=== PATIENT | male | born 1980 | race Caucasian/White ===

== ENCOUNTER 2019-12-10 05:03 | Emergency (ER) | payer SELFPAY ==
--- NOTE | 2019-12-10 05:38 | ER Document Report ---
Entered by ANA BRUNNER SCRIBE 12/10/19 0517 Acting as scribe for:PRINCESS LOTT IV, MD ED General - General Mode of Arrival: Ambulatory Information source: Patient, Friend - Significant other TRAVEL OUTSIDE OF THE [place] IN LAST 30 DAYS: No <PRINCESS LOTT IV - Last Filed: 12/10/19 06:03> <JR DIAZ - Last Filed: 12/10/19 07:44> - General Chief Complaint: Overdose Stated Complaint: POSSIBLE OVERDOSE Time Seen by Provider: 12/10/19 05:15 Notes: This 39 year old male patient presents to the ED today with complaints of a possible heroin overdose that occurred x1 hour prior to arrival. Patient states that he believes the heroin was possibly laced with something because he was twitching and jerking. Patient states that he has been using heroin since 2016. Significant other at bedside states that the patient has been clean for x8 months until x2 months ago. Significant other notes that the patient has an appointment this morning at 0800 for treatment at the [facility]. Patient is requesting to not be given Ativan or any other medications. (PRINCESS LOTT IV) - Related Data Allergies/Adverse Reactions: No Known Allergies Allergy (Unverified 12/10/19 06:00) Past Medical History - General Information source: Patient - Social History Smoking Status: Unknown if Ever Smoked Cigarette use (# per day): No Chew tobacco use (# tins/day): No Smoking Education Provided: No Drug Abuse: Heroin Family History: Reviewed & Not Pertinent Patient has suicidal ideation: No Patient has homicidal ideation: No <PRINCESS LOTT IV - Last Filed: 12/10/19 06:03> Review of Systems - Review of Systems Constitutional: See HPI, Other - Possible heroin overdose EENT: No symptoms reported Cardiovascular: No symptoms reported Respiratory: No symptoms reported Gastrointestinal: No symptoms reported Genitourinary: No symptoms reported Male Genitourinary: No symptoms reported Musculoskeletal: See HPI, Other - Twitching/Jerking Skin: No symptoms reported Hematologic/Lymphatic: No symptoms reported Neurological/Psychological: No symptoms reported -: Yes All other systems reviewed and negative <PRINCESS LOTT IV - Last Filed: 12/10/19 06:03> Physical Exam - General General appearance: Alert, Other - Ocassional random twitching of the extremities - HEENT Head: Normocephalic, Atraumatic Eyes: Normal Pupils: PERRL - Respiratory Respiratory status: No respiratory distress Chest status: Nontender Breath sounds: Normal Chest palpation: Normal - Cardiovascular Rhythm: Regular Heart sounds: Normal auscultation Murmur: No - Abdominal Inspection: Normal Distension: No distension Bowel sounds: Normal Tenderness: Nontender Organomegaly: No organomegaly - Back Back: Normal, Nontender - Extremities General upper extremity: Normal inspection General lower extremity: Normal inspection - Neurological Neuro grossly intact: Yes - Psychological Associated symptoms: Normal affect, Normal mood - Skin Skin Temperature: Warm Skin Moisture: Dry Skin Color: Normal <PRINCESS LOTT IV - Last Filed: 12/10/19 06:03> - Vital signs Vitals: Temp Pulse Resp BP Pulse Ox 97.5 F 82 16 140/84 H 94 12/10/19 05:12 12/10/19 05:12 12/10/19 05:12 12/10/19 05:12 12/10/19 05:12 Course - Laboratory Result Diagrams: 12/10/19 05:22 12/10/19 05:22 - Transfer of Care Care transferred to following provider: DR. UGARTE <PRINCESS LOTT IV - Last Filed: 12/10/19 06:03> - Laboratory Result Diagrams: 12/10/19 05:22 12/10/19 05:22 <JR DIAZ - Last Filed: 12/10/19 07:44> - Re-evaluation Re-evalutation: 12/10/19 07:41 The patient was signed out to me at shift change since his labs were pending. The patient admitted to using heroin he thought was laced with something. The patient's labs shows no acute process. Patient is apparently going right to a rehab facility from the ER this morning. Patient has normal vital signs and is showing no signs of withdrawal. (JR DIAZ) - Vital Signs Vital signs: Temp Pulse Resp BP Pulse Ox 97.5 F 82 12 126/74 H 98 12/10/19 05:12 12/10/19 05:12 12/10/19 07:36 12/10/19 07:36 12/10/19 07:36 - Laboratory Laboratory results interpreted by me: 12/10/19 05:22 ALT 76 H - EKG Interpretation by Me Additional EKG results interpreted by me: 12/10/19 06:03 EKG obtained on 12/10/2019 at 055 3 hours was interpreted by this MD. Findings normal sinus rhythm, rate 72, borderline left axis deviation is present, QRS complexes appear narrow, ST segments are nonspecific. (PRINCESS LOTT IV) Discharge <PRINCESS LOTT IV - Last Filed: 12/10/19 06:03> <JR DIAZ - Last Filed: 12/10/19 07:44> - Discharge Clinical Impression: Heroin adverse reaction Condition: Stable Disposition: HOME, SELF-CARE Instructions: Instructions for Home Care Following a Drug Overdose ([facility]) Additional Instructions: Follow up with your primary care doctor and with outpatient rehab. I personally performed the services described in the documentation, reviewed and edited the documentation which was dictated to the scribe in my presence, and it accurately records my words and actions.
[2019-12-10 06:09] LABS: ABSOLUTE BASOPHILS # (AUTO) 0.1 10^3/uL (0.0-0.2); ABSOLUTE EOSINOPHILS # (AUTO) 0.1 10^3/uL (0.0-0.6); ABSOLUTE LYMPHOCYTES (AUTO) 1.9 10^3/uL (0.5-4.7); ABSOLUTE MONOCYTES (AUTO) 0.8 10^3/uL (0.1-1.4); ABSOLUTE NEUT (AUTO) 5.1 10^3/uL (1.7-8.2); BASOPHILS % (AUTO) 0.7 % (0-2); EOSINOPHILS % (AUTO) 1.3 % (0-6); HEMATOCRIT 43.7 % (37.9-51.0); LYMPHOCYTES % (AUTO) 23.6 % (13-45); MEAN CORPUSCULAR HEMOGLOBIN 30.5 pg (27.0-33.4); MEAN CORPUSCULAR HGB CONC 34.2 g/dL (32.0-36.0); MEAN CORPUSCULAR VOLUME 89 fl (80-97); MONOCYTES % (AUTO) 10.2 % (3-13); PLATELET COUNT 359 10^3/uL (150-450); SEGMENTED NEUTROPHILS % (AUTO) 64.2 % (42-78); TOTAL CELLS COUNTED % (AUTO) 100 %; WHITE BLOOD COUNT 7.9 10^3/uL (4.0-10.5)
[2019-12-10 06:10] LABS: APPEARANCE,URINE SLIGHTLY-CLOUDY; BILIRUBIN,URINE NEGATIVE (NEGATIVE); COLOR,URINE YELLOW; GLUCOSE, URINE NEGATIVE (NEGATIVE); KETONES,URINE NEGATIVE (NEGATIVE); LEUKOCYTE ESTERASE,URINE NEGATIVE (NEGATIVE); NITRITE,URINE NEGATIVE (NEGATIVE); PROTEIN,URINE NEGATIVE (NEGATIVE); UROBILINOGEN,URINE NEGATIVE mg/dL (<2.0)
--- NOTE | 2019-12-10 06:11 | EKG REPORT ---
SEVERITY:- OTHERWISE NORMAL ECG - SINUS RHYTHM BORDERLINE LEFT AXIS DEVIATION : Confirmed by: Hang Dutton MD 10-Dec-2019 06:10:38
[2019-12-10 06:21] LABS: ALBUMIN 4.1 g/dL (3.5-5.0); ALCOHOL < 10 mg/dL (NONE DETECTED); ALKALINE PHOSPHATASE 69 U/L (38-126); ANION GAP 7 (5-19); ASPARTATE AMINO TRANSFERASE 57 U/L (17-59); BILIRUBIN,TOTAL 0.3 mg/dL (0.2-1.3); BLOOD UREA NITROGEN 18 mg/dL (7-20); CARBON DIOXIDE 28 mmol/L (22-30); CHLORIDE 103 mmol/L (98-107); GLUCOSE 107 mg/dL (75-110); POTASSIUM 4.4 mmol/L (3.6-5.0); TOTAL PROTEIN 7.4 g/dL (6.3-8.2)
[2019-12-10 06:25] LABS: URINE BARBITURATES SCREEN NEGATIVE; URINE BENZODIAZEPINES SCREEN NEGATIVE; URINE COCAINE SCREEN NEGATIVE; URINE MARIJUANA (THC) SCREEN NEGATIVE; URINE PHENCYCLIDINE SCREEN NEGATIVE
[2019-12-10 06:27] LABS: URINE METHADONE SCREEN UNCONFIRMED POSITIVE
[2019-12-10 07:39] VITALS: BP 126/74
== END 2019-12-10 07:51 | disposition home or self-care (01) ==
LOC: ER 05:03
DX: F11.10 Opioid abuse, uncomplicated (principal); R25.3 Fasciculation
CPT/HCPCS: 36415; 80053; 80307; 81001; 83735; 85025; 93005; 93010; 99284

== ENCOUNTER 2020-02-19 04:51 | Emergency (ER) | payer SELFPAY ==
--- NOTE | 2020-02-19 05:53 | ER Document Report ---
ED Psych Disorder / Suicide - General Chief Complaint: Psych Problem Stated Complaint: PSYCH EVALUATION Time Seen by Provider: 02/19/20 05:20 Notes: 40-year-old male with history of polysubstance abuse who is currently a heroin user presents to the emergency department seeking help for his addiction and for paranoia. Patient states that he was sober up until November 2019 when his sister suddenly and he started using the day of her . Patient states that he has severe paranoia and "I am always on edge and racing". Patient denies any SI/HI. Patient currently denies any paranoid delusions or hallucinations. Patient states he is trying to save his marriage. Patient denies any medical complaints at this time. TRAVEL OUTSIDE OF THE [place] IN LAST 30 DAYS: No - Related Data Allergies/Adverse Reactions: No Known Allergies Allergy (Unverified 12/10/19 06:00) Past Medical History - Social History Smoking Status: Unknown if Ever Smoked Family History: Reviewed & Not Pertinent Patient has suicidal ideation: No Patient has homicidal ideation: No Past Surgical History: Reports: Orthopedic Surgery Review of Systems - Review of Systems Constitutional: No symptoms reported EENT: No symptoms reported Cardiovascular: No symptoms reported Respiratory: No symptoms reported Gastrointestinal: No symptoms reported Genitourinary: No symptoms reported Male Genitourinary: No symptoms reported Musculoskeletal: No symptoms reported Skin: No symptoms reported Hematologic/Lymphatic: No symptoms reported Neurological/Psychological: No symptoms reported Physical Exam - Vital signs Vitals: Temp 97.4 F 02/19/20 04:56 - Notes Notes: PHYSICAL EXAMINATION: Reviewed vital signs and charting by RN GENERAL: Alert, interacts well. No acute distress. HEAD: Normocephalic, atraumatic. EYES: Pupils equal and round. Extraocular movements intact. ENT: Oral mucosa moist, tongue midline. NECK: Full range of motion. Trachea midline. LUNGS: Clear to auscultation bilaterally, no wheezes, rales, or rhonchi. No respiratory distress. HEART: Regular rate and rhythm. No murmur ABDOMEN: soft, non-tender. No distention. Bowel sounds present EXTREMITIES: Moves all 4 extremities spontaneously. No edema, No cyanosis. PSYCH: Normal affect, depressed mood. SKIN: Warm, dry, normal turgor. No rashes or lesions noted. Course - Re-evaluation Re-evalutation: 02/19/20 05:53 Patient is very pleasant and engages appropriately in conversation. Good eye contact. Patient appears to have a normal affect but a depressed mood and does appear anxious. Currently awaiting medical clearance for psychiatric services. 02/19/20 06:49 Blood work all returned. Mild leukocytosis of 15,000. Patient's creatinine is 1.48. I am unclear if this is due to an AK I due to prerenal etiology or if patient has existing kidney disease. EKG showed a sinus rhythm with a rate of 99, normal axis, no ST segment elevation or depressions, no T wave inversions or acute changes. Urinalysis did not show any evidence of urinary tract infection but was positive for opiates which is known as the patient is a daily heroin us er. I will give the patient some IV fluids. He is cleared for evaluation by psychiatric services. - Vital Signs Vital signs: Temp Pulse Resp BP Pulse Ox 97.6 F 20 112/76 97 02/19/20 05:01 02/19/20 05:01 02/19/20 05:01 02/19/20 05:01 - Laboratory Result Diagrams: 02/19/20 05:45 02/19/20 05:45 Laboratory results interpreted by me: 02/19/20 02/19/20 02/19/20 05:00 05:45 05:45 WBC 15.0 H RDW 14.3 H Absolute Neuts (auto) 10.6 H Creatinine 1.48 H Est GFR (MDRD) Non-Af 52 L Glucose 132 H Calcium 10.6 H Total Protein 8.5 H Urine Protein 100 H Urine Glucose (UA) 50 H Urine Urobilinogen 2.0 H Salicylates < 1.0 L Acetaminophen < 10 L Discharge - Discharge Clinical Impression: Heroin addiction, Paranoia Condition: Stable Disposition: OTHER
[2020-02-19 05:57] LABS: APPEARANCE,URINE CLOUDY; BILIRUBIN,URINE NEGATIVE (NEGATIVE); GLUCOSE, URINE 50 mg/dL (NEGATIVE); KETONES,URINE NEGATIVE (NEGATIVE); LEUKOCYTE ESTERASE,URINE NEGATIVE (NEGATIVE); NITRITE,URINE NEGATIVE (NEGATIVE); PROTEIN,URINE 100 mg/dL (NEGATIVE); URINE SPECIFIC GRAVITY 1.026
[2020-02-19 05:58] LABS: COLOR,URINE DARK YELLOW
[2020-02-19 05:58] LABS: ABSOLUTE BASOPHILS # (AUTO) 0.1 10^3/uL (0.0-0.2); ABSOLUTE EOSINOPHILS # (AUTO) 0.1 10^3/uL (0.0-0.6); ABSOLUTE MONOCYTES (AUTO) 1.2 10^3/uL (0.1-1.4); ABSOLUTE NEUT (AUTO) 10.6 10^3/uL (1.7-8.2); BASOPHILS % (AUTO) 0.9 % (0-2); EOSINOPHILS % (AUTO) 0.4 % (0-6); HEMATOCRIT 47.4 % (37.9-51.0); HEMOGLOBIN 16.7 g/dL (13.5-17.0); LYMPHOCYTES % (AUTO) 19.7 % (13-45); MEAN CORPUSCULAR HEMOGLOBIN 30.1 pg (27.0-33.4); MEAN CORPUSCULAR HGB CONC 35.3 g/dL (32.0-36.0); MEAN CORPUSCULAR VOLUME 86 fl (80-97); MONOCYTES % (AUTO) 7.8 % (3-13); PLATELET COUNT 442 10^3/uL (150-450); RED BLOOD COUNT 5.54 10^6/uL (4.35-5.55); RED CELL DISTRIBUTION WIDTH 14.3 % (11.5-14.0); SEGMENTED NEUTROPHILS % (AUTO) 71.2 % (42-78); TOTAL CELLS COUNTED % (AUTO) 100 %
[2020-02-19 06:06] LABS: URINE BARBITURATES SCREEN NEGATIVE; URINE BENZODIAZEPINES SCREEN NEGATIVE; URINE COCAINE SCREEN NEGATIVE; URINE MARIJUANA (THC) SCREEN NEGATIVE; URINE METHADONE SCREEN NEGATIVE; URINE PHENCYCLIDINE SCREEN NEGATIVE
[2020-02-19 06:20] LABS: ALBUMIN 4.7 g/dL (3.5-5.0); ALKALINE PHOSPHATASE 72 U/L (38-126); ANION GAP 11 (5-19); ASPARTATE AMINO TRANSFERASE 21 U/L (17-59); BILIRUBIN,TOTAL 0.6 mg/dL (0.2-1.3); BLOOD UREA NITROGEN 20 mg/dL (7-20); CALCIUM 10.6 mg/dL (8.4-10.2); CARBON DIOXIDE 25 mmol/L (22-30); CHLORIDE 105 mmol/L (98-107); GLUCOSE 132 mg/dL (75-110); POTASSIUM 4.4 mmol/L (3.6-5.0); TOTAL PROTEIN 8.5 g/dL (6.3-8.2)
[2020-02-19 06:28] LABS: ACETAMINOPHEN < 10 ug/mL (10-30); ALCOHOL < 10 mg/dL (NONE DETECTED); SALICYLATE < 1.0 mg/dL (2.0-20.0)
--- NOTE | 2020-02-19 09:06 | ER Document Report ---
Doctor's Note Notes: 02/19/20 09:05 Report has been received on the patient at 8 AM. I did evaluate the patient. Patient is eating breakfast in no distress. He reports a prior history of paranoia for which he had been on Seroquel. Patient had also been on Suboxone for history of drug abuse. Patient states when his sister was killed in Nov [facility] he stopped the Suboxone and started heroin use. He states this worsened his paranoia. He denies suicidal or homicidal ideation at this time we are awaiting psychiatric evaluation 02/19/20 13:50 Patient has been evaluated by psychiatric team Catalino Webster. Patient does not have suicidal or homicidal ideation at this time. He is willing to go to [place] voluntarily for substance abuse treatment
[2020-02-19 10:43] LABS: CHLAM PCR NOT DETECTED (NOT DETECT)
[2020-02-19 13:56] VITALS: BP 108/74
--- NOTE | 2020-02-19 14:59 | PSYCHOLOGICAL NOTE ---
Psych Note - Psych Note Date seen by psych provider: 02/19/20 Time seen by psych provider: 12:15 Psych Note: Reason for Consult: Substance abuse, DETOX, paranoia Consent permissions: Sister, Mckayla and [facility] Patient reports he came to [facility] ED for help with his substance abuse and mental health. He disclosed he has been struggling with paranoia that only gets worse when he uses methamphetamines. He reports he thinks it started back in 2007 when he was using bath salts; " I think it did something to my brain." He reports he uses heroin daily and methamphetaines 2-3 times a week; "it is not fun, but I still am using." Clinician conducted psychoeducation on substance abuse and addiction. He reports he would like help and provides consent to coordinate with [facility]. Patient reports he lives with his sister and girlfriend. He feels very positive in the strong supportive relationships he has. He identifies that his paranoia has become severe enough he is always feeling people are after him and that his sister and girlfriend have knowledge of these people after him and will tell him. Patient is alert and orientated to person, place, time and circumstance. Mood is euthymic with congruent affect as evidenced by smiling engaging with clinician. Patient denies suicidal and homicidal ideation. Delusions are absent behaviors congruent with an intact reality based presentation I organized and linear thought process. Patient is well-groomed with no noticed body odor. Patient is on the slender side however does not present emaciated. Attention and concentration are currently good. Insight is current and good as evidenced by the patient recognizing his mental health is connected to his drug use and is requesting assistance in sobriety and continued mental health services. Impulse control will historically be poor due to his long-term substance abuse history. Impression/Plan: Patient is cleared from acute psychiatric services. 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 Patient provided consent to coordinate with [facility] for a voluntary bed. Clinician was able to secure a bed and patient is recommended to follow up with voluntary placement. Dr. Poe was consulted on the care and management of this patient; attending physician is in agreement with recommendations and disposition. update Clinician received a phone call from [facility] after the patient's discharge with update. They disclosed the patient refused to come into the building when he found out they do not offer Suboxone, Subutex, or methadone. They continued to disclose the patient has elected to follow up with [facility].
--- NOTE | 2020-02-19 15:28 | EKG REPORT ---
SEVERITY:- NORMAL ECG - SINUS RHYTHM : Confirmed by: Cari Albrecht MD 19-Feb-2020 15:26:56
== END 2020-02-19 13:56 | disposition home or self-care (01) ==
LOC: ER 04:51
DX: F11.20 Opioid dependence, uncomplicated (principal); F22 Delusional disorders; F19.10 Other psychoactive substance abuse, uncomplicated
CPT/HCPCS: 36415; 80053; 80307; 81001; 85025; 87491; 87591; 93005; 93010; 99284